=== PATIENT | male | born 1960 | race African-American/Black ===

== ENCOUNTER 2021-07-29 22:15 | Emergency (ER) | payer MEDICAID ==
[~2021-07-29] VITALS: Ht 177.8 cm; Wt 89.0 kg
[~2021-07-29 22:15] MED LIST: ASPI-1073 PO; ATEN-176; NITRO PO; OMEP20CA4 PO; PHEN100C4 PO
[2021-07-30 00:50] VITALS: BP 137/86
== END 2021-07-30 00:55 | disposition left against medical advice (07) ==
LOC: ER 22:15
DX: R07.89 Other chest pain (principal); F12.10 Cannabis abuse, uncomplicated; J44.1 Chronic obstructive pulmonary disease with (acute) exacerbation; I10 Essential (primary) hypertension; Z79.82 Long term (current) use of aspirin; Z98.890 Other specified postprocedural states
CPT/HCPCS: 93005; 99283

== ENCOUNTER 2021-10-01 21:02 | Inpatient (IN) | payer MEDICAID ==
[~2021-10-01] VITALS: Ht 172.7 cm; Wt 72.6 kg
[~2021-10-01 21:02] MED LIST changes: -ATEN-176; +ATEN-176 PO
[2021-10-01] MEDS ORDERED: ACETAMINOPHEN 325MG TABLET PO ONE (23:00)
[2021-10-02 00:23] LABS: CHLORIDE 109 mEq/L (98-107)
[2021-10-02 00:56] LABS: BASOPHILS % 1.2 % (0.0-2.0); EOSINOPHILS % 0.8 % (0.0-5.0); HEMATOCRIT. 42.2 % (42.0-52.0); HEMOGLOBIN. 14.3 g/dL (14.0-18.0); LYMPHOCYTES % 24.8 % (20.0-50.0); MEAN CORPUSCULAR HEMOGLOBIN 31.3 pg (28.0-32.0); MEAN CORPUSCULAR VOLUME 92.2 fL (80.0-94.0); MEAN PLATELET VOLUME 8.5 fl (7.4-10.4); MONOCYTES % 7.4 % (2.0-8.0); NEUTROPHILS % 65.8 % (40.0-76.0); PLATELET 172 x1000/uL (130-400); RED BLOOD CELL COUNT 4.58 mill/uL (4.7-6.1); RED CELL DISTRIBUTION WIDTH 13.3 % (11.6-14.6)
[2021-10-02] MEDS ORDERED: POTASSIUM CHLORIDE 20MEQ TABLET SR PO NR ×2 (01:15→12:30)
[2021-10-02] MEDS ORDERED: ONDANSETRON HCL 4MG/2ML INJ IV PRN (08:45)
[2021-10-02] MEDS ORDERED: ACETAMINOPHEN 325MG TABLET PO PRN (08:45)
[2021-10-02] MEDS ORDERED: ASPIRIN 81MG TABLET PO SCH (09:00)
[2021-10-02 09:30] VITALS: BP 120/80
[2021-10-02] MEDS ORDERED: LOSA50TA3 PO (11:16)
[2021-10-02] MEDS ORDERED: CLOP-31 PO (11:16)
[2021-10-02 12:00] VITALS: BP 121/76
[2021-10-02] MEDS ORDERED: NITR0.4T SL (12:06)
[2021-10-02] MEDS ORDERED: OMEPRAZOLE 20MG CAPSULE EXTENDED RELEASE PO SCH (12:15)
[2021-10-02] MEDS ORDERED: LOSARTAN POTASSIUM 50 MG TABLET PO SCH (12:15)
[2021-10-02] MEDS ORDERED: NITROGLYCERIN 0.4MG TABLET SL SL PRN ×2 (12:15)
[2021-10-02] MEDS ORDERED: CLOPIDOGREL 75MG TABLET PO SCH (12:15)
[2021-10-03] MEDS ORDERED: ASPIRIN 81MG EC TABLET PO SCH (09:00)
== END 2021-10-02 14:00 | disposition left against medical advice (07) | DRG 203 ==
LOC: ER 21:02 → MICUSO 10-02 03:47 → 8WST 10-02 09:25
PROVIDERS: ADMIT Internal Medicine; ATTEND Internal Medicine
DX: M94.0 Chondrocostal junction syndrome [Tietze] (principal); I11.0 Hypertensive heart disease with heart failure; I50.9 Heart failure, unspecified; I25.10 Atherosclerotic heart disease of native coronary artery without angina pectoris; J44.9 Chronic obstructive pulmonary disease, unspecified; Z53.29 Procedure and treatment not carried out because of patient's decision for other reasons; Z79.82 Long term (current) use of aspirin; Z79.899 Other long term (current) drug therapy
CPT/HCPCS: 36415; 71045; 80053; 83880; 84484; 85025; 93005; 99285